=== PATIENT | male | born 1960 | race Caucasian/White ===

== ENCOUNTER 2019-07-23 06:06 | Inpatient (IN) ==
--- NOTE | 2019-07-08 13:26 | PAT Medication Instructions ---
Medication Instructions Date of Service July 08, 2019 Home Medications Medication Instructions Recorded etodolac 200 mg PO Q12H PRN #14 cap 02/24/19 amlodipine [Norvasc] 5 mg PO QPM aspirin [Aspir-Low] 81 mg PO DAILY duloxetine [Cymbalta] 60 mg PO QPM etodolac 200 mg PO Q12H PRN metoprolol succinate [Toprol XL] 25 mg PO QPM ropinirole 1 mg PO BID ropinirole [Requip XL] 2 mg PO HS omeprazole magnesium [Prilosec OTC] 20 mg PO QAM ASK your surgeon for instructions etodolac 200 mg PO Q12H PRN ASK your prescriber and surgeon aspirin [Aspir-Low] 81 mg PO DAILY STOP taking 24 hours before surgery ropinirole 1 mg PO BID ropinirole [Requip XL] 2 mg PO HS DO NOT take the morning of surgery omeprazole magnesium [Prilosec OTC] 20 mg PO QAM Take morning of surgery With a small sip of water, OTHERWISE NOTHING TO EAT OR DRINK AFTER MIDNIGHT: omeprazole magnesium [Prilosec OTC] 20 mg PO QAM Take evening before surgery amlodipine [Norvasc] 5 mg PO QPM duloxetine [Cymbalta] 60 mg PO QPM metoprolol succinate [Toprol XL] 25 mg PO QPM Other Notes If you have any questions please call us at [phone] or [phone] or [phone] or [phone]
--- NOTE | 2019-07-09 09:50 | Anesthesiology Consultation ---
Date of Service July 09, 2019 Assessment & Plan (1) Encounter for pre-operative examination: - Pentecostal- no blood products - Hx chlorhexidine reaction: pruritus/hives x one month; no wipes given at PAT visit due to prior reaction* - Cardiology: 01/28/19: Hx palpitations/paroxysmal atrial tachycardia on holter (non-sustained runs) controlled on beta srinivasa. Reviewed stress ECHO from 09/2018. Continued on same regimen. F/U one year recommended. Chart Review Chart Review: Pending: Refer to Additional Notes / Consult section (pending preop testing (labs, EKG, CXR)) and Patient seen in Pre Admission Testing Teaching & Discussion Pre-Anesthesia Teaching/Discussion Notes: Instructed NPO after midnight before surgery,except medications with 15 cc of water. Medication instructions provided according to the [facility] guidelines. History Surgery Operation Date: 07/23/19 07:45 Proposed Procedures p L4-L5 Transformaminmal Lumbar Interbody Fusion, Spinal Cord Monitoring - Jalen Aguilar, Height/Weight Height: 5 ft 6 in Weight: 104.8 kg Allergies Allergy/AdvReac Type Severity Reaction Status Date / Time chlorhexidine Allergy Severe pruritus/hives Verified 07/09/19 09:48 (lasted a month) Medications Home Medications Medication Instructions Recorded Confirmed Last Taken amlodipine [Norvasc] 5 mg PO QPM 02/24/19 07/03/19 Unknown aspirin [Aspir-Low] 81 mg PO DAILY 02/24/19 07/03/19 Unknown duloxetine [Cymbalta] 60 mg PO QPM 02/24/19 07/03/19 Unknown metoprolol succinate [Toprol XL] 25 mg PO QPM 02/24/19 07/03/19 Unknown ropinirole 1 mg PO BID 02/24/19 07/03/19 Unknown ropinirole [Requip XL] 2 mg PO HS 02/24/19 07/03/19 Unknown omeprazole magnesium [Prilosec OTC] 20 mg PO QAM 07/03/19 07/03/19 Unknown tizanidine 4 mg PO DAILY PRN 07/09/19 07/09/19 Unknown Past Medical History Medical History Acid reflux controlled Degenerative disc disease L4-5 Fatty liver Hypertension Obesity Paroxysmal atrial tachycardia hx on holter monitor- controlled on beta srinivasa Refusal of blood transfusions as patient is Pentecostal Restless leg Spinal stenosis Exercise / Class Metabolic Activity II 4-5 Yardwork/Stairs/Walk up hill Past Family History Family History Brother Family history of diabetes mellitus Brother Family history of diabetes mellitus Past Surgical History Surgical History History of colonoscopy History of shoulder surgery RIGHT/LEFT Past Anesthesia History No Hx of Anesthesia Complications Brother- "restless" with anesthesia emergence History of PONV No Hx of PONV and No Hx of Motion Sickness Social History Smoking Status: Never smoker Do You Dip or Chew Tobacco: No Hx Alcohol Use: Yes Alcohol type: beer and hard liquor alcohol intake frequency: holidays/special occasions only Hx Substance Use: No substance use type: does not use Review of Systems Reflux controlled. Hx palpitations controlled on beta srinivasa. Patient denies chest pain, shortness of breath, dyspnea on exertion, cough, wheezing. Physical Exam Vital Signs VITALS BP 119/77 P 76 TEMP 98.3 SP02 96%RA RESP 16 PHYSICAL Full neck and c-spine range of motion. Full TMJ range of motion. TMD 3.5 finger breaths Mallampati Score 2 Dentition: missing molar, permanent bridge upper front Lungs: clear throughout to auscultation Cardiac: regular rate and rhythm, no murmurs noted Spine: normal Carotid arteries: negative bruit Extremities: no edema Testing Stress Test Date: 10/08/18 Type: exercise Exercise ECHO without EKG/ECHO without evidence of inducible ischemia. 103% MPHR. 8.3 METS. No chest pain. LVEF 67%. Grade I DD. No significant valvular disease.
--- NOTE | 2019-07-09 10:27 | XRay Report ---
XR chest Pre-admission PA/Lat CLINICAL HISTORY: pat preoperative evaluation COMPARISON STUDY: 02/24/2019 FINDINGS: The bones soft tissues and hemidiaphragms are normal. The cardiomediastinal silhouette is n ormal. The lungs are clear. The pulmonary vasculature is normal. IMPRESSION: Negative chest. The above report was generated using voice recognition software. It may contain grammatical, syntax or spelling errors. Electronically signed by: Flo Cowan M.D. 07/09/2019 10:26 AM
[2019-07-09 10:53] LABS: Basophils # (auto) 0.06 K/uL (0-0.2); Eosinophils # (auto) 0.25 K/uL (0-0.5); Hematocrit (blood only) 42.9 % (42-52); Hemoglobin 15.2 g/dL (14.0-18.0); Immature Granulocytes # (auto) 0.02 K/uL (0.00-0.02); Immature Granulocytes % (auto) 0.3 %; Lymphocytes # (auto) 2.09 K/uL (1.2-3.4); Lymphocytes % (auto) 33.5 %; Mean Corpuscular Hemoglobin 30.5 pg (25-34); Mean Corpuscular Hgb Conc 35.4 g/dL (32-36); Mean Corpuscular Volume 86.1 fL (80-100); Mean Platelet Volume 11.6 fL (7.4-10.4); Monocytes # (auto) 0.46 K/uL (0.11-0.59); Monocytes % (auto) 7.4 %; Neutrophils # (auto) 3.36 K/uL (1.4-6.5); Neutrophils % (auto) 53.8 %; Platelet Count 201 K/uL (130-400); RDW Coefficient of Variation 12.6 % (11.5-14.5); Red Blood Count 4.98 M/uL (4.7-6.1); White Blood Count 6.24 K/uL (4.8-10.8)
[2019-07-09 11:04] LABS: Partial Thromboplastin Ratio 0.9; Partial Thromboplastin Time 24.8 Seconds (21.0-31.0); Prothrombin Time 10.1 Seconds (9.0-12.0)
[2019-07-09 11:09] LABS: BUN Creatinine Ratio 12.1 (10-20); Calcium 8.5 mg/dl (8.5-10.1); Creatinine Clr Calc Pharmacy 91.5 ml/min; Est GFR (African American) 95.3; Est GFR (Non-African American) 82.2; Potassium 3.9 mmol/L (3.5-5.1)
[2019-07-09 11:13] LABS: Appearance Urine Clear (Clear); Bilirubin Urine Negative (Negative); Blood Urine Negative (Negative); Color Urine Yellow; Glucose Urine UA Negative (Negative); Ketones Urine Negative (Negative); Leukocyte Esterase Urine Negative (Negative); Nitrite Urine Negative (Negative); Protein Urine Negative (Negative); Specific Gravity Urine 1.009 (1.000-1.030); Urobilinogen Urine Negative (Negative)
[~2019-07-23 06:06] MED LIST: ACETAMINOPHEN 500 MG TAB PO SCH; CEFAZOLIN 2000MG 2,000 MG/15 ML SYR IV SCH; CeleBREX 200 MG CAP PO SCH; GABAPENTIN 600 MG DOSE PO SCH; LR 15ML/HR IV SCH
[2019-07-23] MEDS ORDERED: EPINEPHrine INJ 1 MG/ML AMP ONE (06:56)
[2019-07-23] MEDS ORDERED: BACITRACIN INJ 50,000 UNIT VIAL ONE (06:56)
[2019-07-23] MEDS ORDERED: BUPIVACAINE 0.5 % 5 MG/1 ML MPF 30ML VIAL ONE (06:57)
[2019-07-23] MEDS ORDERED: ROCURONIUM BROMIDE 10 MG/ML 5 ML VIAL ONE ×2 (07:12→08:43)
[2019-07-23] MEDS ORDERED: PROPOFOL IV EMULSION 10 MG/ML 20 ML VIAL IV ONE (07:12)
[2019-07-23] MEDS ORDERED: DEXAMETHASONE SOD INJ 4 MG/ML VIAL ONE (07:12)
[2019-07-23] MEDS ORDERED: ONDANSETRON INJ 2 MG/ML 2 ML VIAL ONE (07:12)
[2019-07-23] MEDS ORDERED: LIDOCAINE HCL 2% 2 ML VIAL/AMP(20MG/ML) INFIL ONE (07:12)
[2019-07-23] MEDS ORDERED: MIDAZOLAM HCL 1 MG/ML 2ML VIAL ONE (07:13)
[2019-07-23] MEDS ORDERED: fentaNYL citrate 100 MCG/2 ML VIAL ONE ×2 (07:13)
[2019-07-23] MEDS ORDERED: ATROPINE SULFATE 0.1 MG/ML 10ML SYR IV PRN (07:22)
[2019-07-23] MEDS ORDERED: LABETALOL HCL IV 5 MG/ML 20ML IV PRN (07:22)
[2019-07-23] MEDS ORDERED: ONDANSETRON INJ 2 MG/ML 2 ML VIAL IV PRN ×2 (07:22→11:10)
--- NOTE | 2019-07-23 07:28 | History & Physical Bridge Note ---
Date of Service July 23, 2019 History & Physical Bridge Note I have examined the patient, reviewed the History & Physical and in the interval since the performance of the History & Physical I have noted the following changes of clinical significance: no changes noted
--- NOTE | 2019-07-23 07:30 | History & Physical Report ---
Date of Service July 23, 2019 Assessment & Plan (1) Spinal stenosis, lumbar region with neurogenic claudication: L4-L5 transforaminal lumbar interbody fusion Present on Admission?: Yes History of Present Illness Chief Complaint: Back and bilateral leg pain Primary Care Provider: ENZO Garza This is a 59-year-old male who presents with chronic persistent back and bilateral leg pain. After failing extensive course of nonoperative care is here for surgical intervention. Allergies Allergy/AdvReac Type Severity Reaction Status Date / Time chlorhexidine Allergy Severe pruritus/hives Verified 07/09/19 09:48 (lasted a month) Home Medications Home Medications Medication Instructions Recorded Confirmed Type amlodipine [Norvasc] 5 mg PO QPM 02/24/19 07/23/19 History aspirin [Aspir-Low] 81 mg PO DAILY 02/24/19 07/23/19 History duloxetine [Cymbalta] 60 mg PO QPM 02/24/19 07/23/19 History metoprolol succinate [Toprol XL] 25 mg PO QPM 02/24/19 07/23/19 History ropinirole 1 mg PO BID 02/24/19 07/23/19 History ropinirole [Requip XL] 2 mg PO HS 02/24/19 07/23/19 History omeprazole magnesium [Prilosec OTC] 20 mg PO QAM 07/03/19 07/23/19 History tizanidine 4 mg PO DAILY PRN 07/09/19 07/09/19 History ropinirole 1 mg PO DAILY 07/23/19 07/23/19 History Past Med/Surg History Medical History Acid reflux controlled Degenerative disc disease L4-5 Fatty liver Hypertension Spinal stenosis Obesity Paroxysmal atrial tachycardia hx on holter monitor- controlled on beta srinivasa Refusal of blood transfusions as patient is Jewish Restless leg Surgical History History of colonoscopy History of shoulder surgery RIGHT/LEFT Family History Brother Family history of diabetes mellitus Brother Family history of diabetes mellitus Social History Preferred Language: Ivorian Communication Ability: Effective Administration Assistant Required: No Beliefs That Will Affect Care: Roman Catholic Roman Catholic Beliefs: JEHOVAS WITNESS - NO BLOOD Current Living Situation: Spouse Other Information That Helps Us Care for You: No Feels Safe at Home: Yes Smoking Status: Never smoker Do You Dip or Chew Tobacco: No ; Hx Alcohol Use: Yes Alcohol type: beer and hard liquor Hx Substance Use: No Physical Exam Physical Exam: Patient is alert and oriented neurologically intact. Results & Data Vital Signs (Past 12 Hours) Vital Signs Temp Pulse Resp BP Pulse Ox 07/23/19 06:46 36.8 C 72 20 140/93 97
[2019-07-23] MEDS ORDERED: KETAMINE HCL INJ 50 MG/ML 10 ML VIAL ONE (08:01)
[2019-07-23] MEDS ORDERED: HYDROmorphone INJ 2 MG/ML SYR/VIAL ONE (08:04)
[2019-07-23] MEDS ORDERED: ePHEDrine sulfate 50 MG/ML AMP ONE (09:04)
[2019-07-23] MEDS ORDERED: FLOSEAL HEMOSTATIC MATRIX 10ML TOP ONE (09:13)
--- NOTE | 2019-07-23 09:28 | Fluoroscopy Report ---
FL lumbar spine 2-3V HISTORY: 59 years-old Male FLUORO chronic low back pain COMPARISON: None available TECHNIQUE: One spot fluoroscopic image of the lumbar spine was obtained utilizing 12 seconds fluorosc opy time FINDINGS: Discectomy changes with laminectomy, posterior interbody julia and screw fusion noted at what appears t o be the L4-L5 level. Alignment is difficult to evaluate on this single AP view. No gross abnormality identified. IMPRESSION: Fluoroscopic assistance as above. Please see operative report for further details. The above report was generated using voice recognition software. It may contain grammatical, syntax o r spelling errors. Electronically signed by: Amarjit Valdez M.D. 07/23/2019 9:27 AM
--- NOTE | 2019-07-23 09:33 | Operative Report ---
Post Operative Report Pre & Post Diagnosis Operation Date: 07/23/19 07:45 Pre-Op Diagnosis: Lumbar spinal stenosis with neurogenic claudication Post-Op Diagnosis: Lumbar spinal stenosis with neurogenic claudication I identified the patient and participated in the time-out.: Yes Procedure Operation Date: 07/23/19 07:45 Actual Procedures #1 lumbar decompression with bilateral medial facetectomies foraminotomies L3-4 L4-5. #2 posterior spinal fusion L4-5. #3 placement posterior instrumentation L4-5 per #4 interbody fusion L4-5 per #5 placement of titanium 11 x 26 mm cage at L4-5 per #6 placement of local autograft in the posterior lateral gutters per #7 placement infuse collagen sponge bone mass graft in the posterior lateral gutters and ostial amp and interbody space. Surgeon Jalen Aguilar, DO Fulfillment Specialist None Estimated Blood Loss 100 Findings See Below The patient is 5 foot 6 inches tall weighing over 104 kg with a BMI in excess of 37. The patient's body habitus did add significant technical difficulty adding at least 25% increase in operative time requiring her deepest retractors and instruments in order to perform his surgery. Specimens None Indications This is a 59-year-old male who presents with above-mentioned diagnosis after failing extensive course of nonoperative care is here for surgical intervention. Description of Procedure Patient was met with identified and informed consent obtained. Patient was then taken to the operative suite underwent intubation placed in a prone position the Mele table on top of the Neptali frame. All bony prominences well-padded eyes inspected to ensure no external pressure placed upon the peer at this point the lumbar spine was prepped and draped in a normal sterile fashion. Sharp dissection with the assistance of Bovie cautery was performed down to and exposing the lamina and transverse processes of L4 and L5 bilaterally. From a caudal cephalad fashion complete laminectomy of L4 partial laminectomy L3 was performed including bilateral medial facetectomies and foraminotomies addressing severe stenosis. Pedicle screws were then placed in L4 and L5 bilaterally with assistance of fluoroscopy the purposes julia placed. By way of a transforaminal approach and left complete discectomy was performed endplates curetted to subcortical bleeding bone and a 11 x 26 mm titanium cage filled with osteo-amp bone graft tapped in position. The rods were then locked into final position bilaterally. The transverse processes of L4 and L5 bur to subcortical bleeding bone. Infuse collagen sponge master graft and local autograft was placed in the posterior gutters. 15 round ABDIRAHMAN drain inserted. The incision was then closed with 1 Vicryl in the fascia 2-0 Vicryl substantially and 4 Monocryl for final skin closure. Steri-Strip sterile dressings placed. Patient will continue PACU stable condition. Please note spinal cord monitoring was utilized throughout the procedure no changes noted. I attest to the content of the Intraoperative Record and any orders documented therein. Any exceptions are noted below.
[2019-07-23] MEDS ORDERED: NEOSTIGMINE METHYLSULFATE 1 MG/ML 10ML VIAL ONE (09:53)
[2019-07-23] MEDS ORDERED: GLYCOPYRROLATE 0.2 MG/ML VIAL ONE (09:53)
[2019-07-23] MEDS: HYDROmorphone INJ 1 MG/ML SYRINGE IV PRN ×3 (10:05→10:18)
--- NOTE | 2019-07-23 10:57 | Anesthesiology Progress Note ---
Date of Service July 23, 2019 Anesthesia Post Procedure Vital Signs Vital Signs: Temp Pulse Resp BP Pulse Ox 07/23/19 10:45 36.2 C L 95 H 14 113/77 97 07/23/19 10:35 95 H 16 132/80 97 07/23/19 10:25 89 13 126/87 96 07/23/19 10:15 85 16 144/86 H 97 07/23/19 10:05 82 17 141/84 H 100 07/23/19 09:55 92 H 16 143/91 H 99 07/23/19 09:45 36.2 C L 86 16 154/87 H 98 07/23/19 06:46 36.8 C 72 20 140/93 97 Pain Intensity Back: Pain Intensity: 4 Transfer of Care Handoff Completed per policy Notes Mental Status: alert / awake / arousable Patient Amnestic to Procedure: Yes Nausea / Vomiting: adequately controlled Pain: adequately controlled Airway Patency, RR, SpO2: stable & adequate BP & HR: stable & adequate Hydration State: stable & adequate Anesthetic Complications: no major complications apparent
[2019-07-23] MEDS ORDERED: ACETAMINOPHEN 500 MG TAB PO PRN (11:10)
[2019-07-23] MEDS ORDERED: MAGNESIUM HYDROXIDE SUSP 30 ML UDC PO PRN (11:10)
[2019-07-23] MEDS ORDERED: NALOXONE HCL 0.4 MG/1 ML VIAL/CARP IV PRN (11:10)
[2019-07-23] MEDS ORDERED: HYDROmorphone INJ 1 MG/ML SYRINGE IV PRN (11:10)
[2019-07-23] MEDS ORDERED: METOCLOPRAMIDE HCL INJ 5 MG/ML 2 ML VIAL IV PRN (11:10)
[2019-07-23] MEDS ORDERED: FAMOTIDINE 20 MG TAB PO PRN (11:10)
[2019-07-23] MEDS ORDERED: LORazepam 0.5 MG TAB PO PRN (11:10)
[2019-07-23] MEDS ORDERED: bisacodyL 10 MG SUPP PR PRN (11:10)
[2019-07-23] MEDS ORDERED: DO NOT ADMINISTER FLU VACCINE PRN (11:10)
[2019-07-23] MEDS ORDERED: ONDANSETRON 4 MG OD TAB PO PRN (11:10)
[2019-07-23] MEDS ORDERED: DO NOT ADMINISTER PNEUMOCOCCAL VACCINE PRN (11:10)
[2019-07-23] MEDS ORDERED: TIZANIDINE HCL 4 MG TABLET PO PRN (11:10)
[2019-07-23] MEDS ORDERED: PROMETHAZINE HCL 12.5 MG in SODIUM CHLORIDE 0.9% 50 ML IV PRN (11:10)
[2019-07-23] MEDS ORDERED: LORazepam 0.5 MG/1 ML VIAL IV PRN (11:10)
[2019-07-23] MEDS ORDERED: TRAMADOL HCL 50 MG TABLET PO PRN (11:10)
[2019-07-23] MEDS ORDERED: SOD PHOSPHATE/SOD BIPHOSPHATE ENEMA 132 ML BTL PR PRN (11:10)
[2019-07-23] MEDS ORDERED: HYDROmorphone INJ 0.5 MG/0.5 ML SYR IV PRN (11:10)
[2019-07-23] MEDS ORDERED: ACETAMINOPHEN 1,000 MG/100 ML VIAL IV PRN (11:10)
[2019-07-23] MEDS ORDERED: ALUMINUM/MAGNESIUM SUSP 30 ML UDC PO PRN (11:10)
[2019-07-23] MEDS: KETOROLAC 30 MG/ML VIAL IV SCH ×3 (11:57→23:41)
[2019-07-23] MEDS: LACTATED RINGER'S 1,000 ML IV SCH ×2 (13:04→19:40)
[2019-07-23] MEDS: OXYCODONE HCL IR 5 MG TAB (IMMEDIATE RELEASE) PO PRN ×3 (13:36→22:18)
[2019-07-23] MEDS: ROPINIROLE HCL 1 MG TABLET PO SCH ×2 (13:37→21:22)
[2019-07-23] MEDS: CEFAZOLIN 2000MG 2,000 MG/15 ML SYR IV SCH ×2 (14:34→22:18)
[2019-07-23] MEDS ORDERED: ROPINIROLE 2 MG PO SCH (21:00)
[2019-07-23] MEDS: METOPROLOL SUCC 25MG EXT REL TAB PO SCH (21:22)
[2019-07-23] MEDS: DOCUSATE SODIUM/SENNA 50/8.6MG TAB PO SCH (21:22)
[2019-07-23] MEDS: AMLODIPINE BESYLATE 5 MG TAB PO SCH (21:23)
[2019-07-23] MEDS: DULOXETINE HCL 60 MG CAP PO SCH (21:23)
[2019-07-24] MEDS: LACTATED RINGER'S 1,000 ML IV SCH (02:12)
[2019-07-24] MEDS: OXYCODONE HCL IR 5 MG TAB (IMMEDIATE RELEASE) PO PRN ×4 (03:56→18:59)
[2019-07-24 05:29] LABS: Basophils # (auto) 0.01 K/uL (0-0.2); Basophils % (auto) 0.1 %; Hemoglobin 12.8 g/dL (14.0-18.0); Immature Granulocytes # (auto) 0.03 K/uL (0.00-0.02); Immature Granulocytes % (auto) 0.2 %; Lymphocytes # (auto) 1.43 K/uL (1.2-3.4); Lymphocytes % (auto) 11.7 %; Mean Corpuscular Hgb Conc 34.6 g/dL (32-36); Mean Corpuscular Volume 86.9 fL (80-100); Mean Platelet Volume 11.7 fL (7.4-10.4); Monocytes % (auto) 7.4 %; Neutrophils # (auto) 9.87 K/uL (1.4-6.5); Neutrophils % (auto) 80.6 %; Platelet Count 185 K/uL (130-400); RDW Coefficient of Variation 12.8 % (11.5-14.5); RDW Standard Deviation 40.8 fL (36.4-46.3); Red Blood Count 4.26 M/uL (4.7-6.1); White Blood Count 12.24 K/uL (4.8-10.8)
[2019-07-24] MEDS: KETOROLAC 30 MG/ML VIAL IV SCH (05:51)
[2019-07-24] MEDS: POLYETHYLENE (MIRALAX) 17 GM PACK PO SCH ×4 (05:51→23:36)
[2019-07-24 06:01] LABS: Calcium 8.3 mg/dl (8.5-10.1); Creatinine Clr Calc Pharmacy 82.5 ml/min; Est GFR (African American) 84.1; Est GFR (Non-African American) 72.5; Potassium 3.8 mmol/L (3.5-5.1)
[2019-07-24] MEDS: PANTOprazole 40 MG TAB PO SCH (07:18)
[2019-07-24] MEDS: ASPIRIN 81 MG ECTAB PO SCH (07:19)
[2019-07-24] MEDS: ROPINIROLE HCL 1 MG TABLET PO SCH (07:19)
[2019-07-24] MEDS ORDERED: ROPINIROLE HCL 1 MG TABLET PO SCH ×2 (09:00→21:00)
[2019-07-24] MEDS ORDERED: Nursing to Pharmacy Communication ONE (10:03)
[2019-07-24] MEDS ORDERED: ROPINIROLE 2 MG PO SCH (11:00)
--- NOTE | 2019-07-24 11:48 | Orthopedic Progress Note ---
Date of Service July 24, 2019 Assessment & Plan (1) Spinal stenosis, lumbar region with neurogenic claudication: This time we will continue physical therapy monitor ABDIRAHMAN output hopefully discharge home in the next few days. Present on Admission?: Yes Subjective Patient's back pain is controlled leg symptoms improved. Physical Exam Physical Exam: Patient is ambulating halls. Has good strength testing. Results & Data Vital Signs (Past 12 Hours) Vital Signs Temp Pulse Resp BP BP Pulse Ox 07/24/19 11:41 36.4 C L 78 16 130/75 96 07/24/19 07:29 36.5 C 63 18 128/74 98 07/24/19 03:37 36.6 C 79 15 120/71 98
[2019-07-24] MEDS ORDERED: ROPINIROLE HCL 1 MG TABLET PO PRN (12:53)
[2019-07-24] MEDS: ROPINIROLE 2 MG PO SCH ×2 (13:48→20:29)
[2019-07-24] MEDS: DULOXETINE HCL 60 MG CAP PO SCH (20:29)
[2019-07-24] MEDS: DOCUSATE SODIUM/SENNA 50/8.6MG TAB PO SCH (20:30)
[2019-07-24] MEDS: METOPROLOL SUCC 25MG EXT REL TAB PO SCH (20:32)
[2019-07-24] MEDS: AMLODIPINE BESYLATE 5 MG TAB PO SCH (20:32)
[2019-07-25] MEDS: OXYCODONE HCL IR 5 MG TAB (IMMEDIATE RELEASE) PO PRN (02:32)
[2019-07-25] MEDS: POLYETHYLENE (MIRALAX) 17 GM PACK PO SCH ×2 (05:48→12:04)
[2019-07-25] MEDS: ROPINIROLE 2 MG PO SCH (07:23)
[2019-07-25] MEDS: PANTOprazole 40 MG TAB PO SCH (07:23)
[2019-07-25] MEDS: ASPIRIN 81 MG ECTAB PO SCH (07:24)
--- NOTE | 2019-07-25 07:34 | Discharge Summary ---
Date of Service July 25, 2019 Admission HPI Per Admitting Provider This is a 59-year-old male who presents with chronic persistent back and bilateral leg pain. After failing extensive course of nonoperative care is here for surgical intervention. Principal Diagnosis Lumbar spinal stenosis with neurogenic claudication Discharge Data Allergies Allergy/AdvReac Type Severity Reaction Status Date / Time chlorhexidine Allergy Severe pruritus/hives Verified 07/09/19 09:48 (lasted a month) Consultations 07/23/19 11:10 Consult Case Management - Discharge Planning Routine Procedures Performed Operation Date: 07/23/19 07:45 Actual Procedures p L4-L5 Transforaminmal Lumbar Interbody Fusion, application of Infuse, Spinal Cord Monitoring(Not Applicable) - Jalen Aguilar DO Ordered Studies 07/23/19 07:45 FL fluoroscopy <1hr Routine FL lumbar spine 2-3V Routine Hospital Course (1) Spinal stenosis, lumbar region with neurogenic claudication: Patient underwent lumbar depression fusion tolerated this well was taken to orthopedic for pathology. Postop day 1 he was up and ambulating progressed appropriately postop day #2. Pain much markedly controlled. Neurologically intact. Subsequently discharged home. Discharge orders instructions from the chart for further review. Total Time Total Time Spent Total Time Spent (In Minutes): 20 minutes Discharge Plan Discharge Items Patient Disposition: Home - Self-Care Reason For Visit: LUMBAR SPINAL STENOSIS W/NEUROGENIC CLAUDICATION Discharge Diagnosis: Lumbar spinal stenosis with neurogenic claudication Activity: As commented below Non-emergency contact: Primary Care Provider Call non-emergency contact if: you have any medication questions Follow-up/Referrals: Karla Belle CRNP [Primary Care Provider] - Diet: Regular Addtl Attending Provider Instructions: ACTIVITY RECOMMENDATIONS: SELF CARE INSTRUCTIONS AFTER THORACIC/LUMBAR FUSIONS 1. You may walk to your tolerance. It is good exercise for your legs and back. Expect some back and intermittent leg aches and pains. 2. You may perform "counter-top" level activities (make a sandwich, eduardo with a project, etc.). 3. No bending or lifting of more than 10 pounds or back twisting of any nature (roll like a log when turning in bed). 4. You may ride in a car for 20-30 minutes at a time. No driving until after your first visit with your doctor. 5. Frequent changes of position and restricting sitting to 30 minutes at a time will help limit the amount of back spasms and stiffness you may experience. 6. You may discontinue the use of ambulatory aids (cane, crutches, etc.) once your strength and confidence allow. 7. You may brand engineer the shower and let water strike your incision when you arrive home at least once daily. Do not take a tub bath, sit in a hot tub or go into a swimming pool until after your first recheck in the office. SPECIAL CARE INSTRUCTIONS: VERY IMPORTANT TO READ AND REVIEW A. Your surgical incision has been closed with a cosmetic suture under the skin that will dissolve in about 6 weeks. In 14 days, you can use a pair of clean scissors and cut the suture that is left outside of the skin at the ends of your incision. 1. The small skin tapes can be removed 7 days after surgery if they have not fallen off by that point. 2. You may keep the wound open to air as much as possible to promote healing after post-op day number 5 unless told otherwise by your doctor. 3. If you think the wound looks like it is becoming infected (redness or worsening drainage) and/or you are experiencing fever, chill or worsening back pain and muscle spasms, contact the office so that we may evaluate you as soon as possible. B. Complications are uncommon, but please contact us if you have any signs or symptoms of: 1. wound infection (fever higher than 102.5 degrees F, redness, separation of wound, drainage, or increasing pain from the incision) 2. blood clots in legs (pain, swelling, redness and warmth in legs) 3. urinary tract infection (fever higher than 102.5 degrees F, burning upon urination or increased frequency of urination) 4. nerve problems (inability to walk on your toes or heels, numbness, loss of bowel or bladder control) 5. any other symptoms that concern you C. Please call the office at if you have any concerns or questions about your operation or recovery. D. No smoking! Smoking drastically decreases the chance of a solid fusion. E. Do not take any anti-inflammatory medications (Indocin, Advil, Motrin, Aspirin, Naprosyn, etc.) as these may inhibit the chance of a solid fusion. Tylenol is okay to take for pain. MANAGING PAIN AFTER SPINAL SURGERY 1. Narcotic medication is intended for short-term use and will be provided for surgical pain. Surgical pain usually lasts for a period of 4-6 weeks. Narcotic medication includes Percocet, Vicodin, Darvocet, Tylenol #3 or Lortab. 2. Longer-term pain is more appropriately treated with non-narcotic medication such as Tylenol ES. 3. Muscle spasm is not appropriately treated with narcotics. Muscle relaxers such as Soma, Flexeril or Skelaxin can be used along with Tylenol ES. 4. Remember that we all live with some "aches and pains". This is not unusual or uncommon after an injury or as we get older. a. Back pain is expected and may include muscle spasms for 4 to 6 weeks after surgery. The pain should gradually improve. If the pain worsens for no apparent reason, please contact the office. b. Intermittent leg pain may also be experienced and should not be concerned about unless it worsens for no apparent reason. If so, please contact the office. 5. We will provide appropriate medication within the normal guidelines of their prescribed use. We will also be very cautious and aware of potential abuse and extended duration of patients' medication needs. a. Pain medications are for your comfort and to assist with sleep and rest so that the tissue can heal. They are not provided in order to return to normal activity and should not be used through the day. To do so or worsening pain at night can result from ongoing tissue damage and development of tolerance to the prescribed medicine. 6. Please allow 2-3 days to process refills. Prescriptions will not be mailed but must be picked up at the office. FOLLOW UP VISIT: Keep your scheduled follow-up appointment. Any questions, please call the office at . Pending Studies at Discharge: No Stand-Alone Forms: My [employer], Smoking Cessation Medications and DC Order Prescriptions: New tramadol 50 mg tablet 50 mg PO Q6H PRN (Reason: pain, moderate) Qty: 30 RF: 0 oxycodone 5 mg tablet 5 mg PO Q6H PRN (Reason: pain, severe) Qty: 30 RF: 0 Continued amlodipine [Norvasc] 5 mg tablet 5 mg PO QPM RF: 0 aspirin [Aspir-Low] 81 mg Tablet,Delayed Release (Dr/Ec) 81 mg PO DAILY RF: 0 metoprolol succinate [Toprol XL] 25 mg tablet extended release 24 hr 25 mg PO QPM RF: 0 duloxetine [Cymbalta] 60 mg capsule,delayed release(DR/EC) 60 mg PO QPM RF: 0 ropinirole [Requip XL] 2 mg tablet extended release 24 hr 2 mg PO BID RF: 0 Prilosec OTC 20 mg Tablet,Delayed Release (Dr/Ec) 20 mg PO QAM RF: 0 tizanidine 4 mg Capsule 4 mg PO DAILY PRN (Reason: Pain) RF: 0 No Action ropinirole 1 mg Tablet 1 mg PO TID PRN (Reason: Restless Leg(S)) RF: 0 Discharge Orders: Discharge Order (Routine); Ordered 07/25/19 Ordered By: Jalen Aguilar Admission Data Admit Date/Time: 07/23/19 09:36 Attending Provider: Jalen Aguilar Admit Provider: Jalen Aguilar Primary Care Provider: Karla Belle
[2019-07-25] MEDS ORDERED: DEXAMETHASONE SOD PHOSPHATE 8 MG in SYRINGE 0 ML IV ONE (08:00)
== END 2019-07-25 13:57 | disposition home or self-care (01) | DRG 454 ==
LOC: ASU 06:06 → 3E 09:36